=== PATIENT | male | born 2000 | race Caucasian/White ===

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

== ENCOUNTER 2020-08-02 08:28 | Emergency (ER) | payer MEDICAID ==
[2020-08-02 08:48] VITALS: O2SAT 98
[2020-08-02] MEDS ORDERED: Adacel Vial IM ONE ×2 (09:17→09:42)
[2020-08-02] MEDS ORDERED: BACIGUENT PACKET TP ONE (09:17)
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
[2020-08-02] MEDS ORDERED: Augmentin 875-125 Tablet PO ONE (09:27)
[2020-08-02] MEDS ORDERED: BACIGUENT PACKET ONE (09:42)
[2020-08-02] MEDS ORDERED: Augmentin 875-125 Tablet ONE (09:44)
[2020-08-02 11:18] VITALS: BP 132/79; PULSE 83
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
== END 2020-08-02 11:18 | disposition home or self-care (01) ==
LOC: ED 08:28
DX: S01.112A Laceration without foreign body of left eyelid and periocular area, initial encounter (principal); Y04.0XXA Assault by unarmed brawl or fight, initial encounter; Y04.1XXA Assault by human bite, initial encounter; Y93.9 Activity, unspecified; Y92.89 Other specified places as the place of occurrence of the external cause; S10.93XA Contusion of unspecified part of neck, initial encounter; S00.03XA Contusion of scalp, initial encounter; S00.01XA Abrasion of scalp, initial encounter; S81.852A Open bite, left lower leg, initial encounter; S80.812A Abrasion, left lower leg, initial encounter; S80.811A Abrasion, right lower leg, initial encounter
CPT/HCPCS: 70450; 70490; 76376; 90471; 90715; 99284; A9270-GY

== ENCOUNTER 2020-09-04 19:11 | Emergency (ER) | payer MEDICAID ==
[2020-09-04] MEDS ORDERED: BABY ASPIRIN 81 MG CHEW PO ONE (19:17)
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
[2020-09-04 19:25] VITALS: O2SAT 98
[2020-09-04 19:32] LABS: Absolute Neutrophil Ct (ANC) 6.15 (1.4-6.9); BASOPHIL % 0.5 % (0.0-0.4); Basophil (Absolute #) 0.05 (0-0.4); Eosinophil % 5.5 % (0.00-5.0); Eosinophil (Absolute #) 0.55 (0-0.5); Hematocrit 51.6 % (42-50); Hemoglobin 17.6 gm/dl (12.5-18.0); Lymphocyte (Absolute #) 2.54 (1.0-4.6); Lymphocytes % 25.3 % (24.0-44.0); Mean Cell Volume 86.4 fl (78-100); Mean Corpuscular Hemoglobin 29.5 pg (26-32); Mean Corpuscular Hgb Concent. 34.1 g/dl (32-36); Mean Platelet Volume 10.9 fl (7.5-11.0); Monocyte (Absolute #) 0.73 (0.0-1.3); Monocytes % 7.3 % (0.0-12.0); Neutrophil % 61.4 % (36.0-66.0); Platelet Count 221 K/mm3 (150-450); Red Blood Count 5.97 M/mm3 (4.1-5.6); Red Cell Distribution Width 12.9 % (11.5-14.0)
[2020-09-04 19:41] LABS: INR 1.13 (0.8-3.0); PROTIME 12.8 SECONDS (8.83-12.87)
[2020-09-04 19:46] LABS: ALBUMIN 5.3 g/dL (3.5-5.0); ALKALINE PHOSPHATASE 92 U/L (38-126); ANION GAP 20.2 MEQ/L (5-15); BLOOD UREA NITROGEN 13 mg/dL (9-20); CHLORIDE 102 mmol/L (98-107); Calcium 9.8 mg/dL (8.4-10.2); Carbon Dioxide 28 mmol/L (22-30); Creatinine 1 1.28 mg/dL (0.66-1.25); EST GLOMERULAR FILTRATION RATE > 60.0 ML/MIN; Glucose 98 mg/dL (74-106); Potassium 4.1 mmol/L (3.5-5.1); SGOT/AST 27 U/L (17-59); SGPT/ALT 19 U/L (0-50); SODIUM 147 mmol/L (137-145); Total Protein 8.5 g/dL (6.3-8.2)
[2020-09-04 19:51] LABS: D-DIMER QUANTITATIVE < 215 ng/mL (215-500)
[2020-09-04 20:17] VITALS: BP 118/59; PULSE 81
[2020-09-04] MEDS ORDERED: D50W 50 ml Abboject IV ONE (20:19)
--- NOTE | 2020-09-05 08:46 | XRAY ---
Indication: Chest pain. Comparison: None Portable chest demonstrates normal heart, lungs, and bony thorax.
== END 2020-09-04 20:20 | disposition home or self-care (01) ==
LOC: ED 19:11
DX: R07.89 Other chest pain (principal)
CPT/HCPCS: 36000; 36415; 71045; 80053; 84484; 85025; 85379; 85610; 93005; 93041; 94760; 99284